=== PATIENT | male | born 1955 ===

== ENCOUNTER → 2025-02-21 14:39 | Outpatient (CLI) | payer MEDICARE, OTHER, SELFPAY ==
--- NOTE | 2025-02-21 14:42 | DI.MRI.S_ITS ---
PROCEDURE: MR SHOULDER RT WO CON INDICATIONS: R SHOULDER PAIN TECHNIQUE: Noncontrast oblique coronal T2 fast spin echo with fat saturation, oblique sagittal T1 spin echo and T2 fast spin echo with fat saturation, axial T1 spin echo and T2 fast spin echo with fat saturation through the shoulder. COMPARISON: [facility], CR, XR SHOULDER RT 2+ VIEWS, 02/18/2025, 9:36. FINDINGS: Image quality: Excellent. Rotator cuff: Full-thickness rupture involving mid to posterior fibers of distal supraspinatus at its insertion on humeral head is seen with up to 2.3 cm medial retraction of torn tendon fibers. Low to moderate grade articular surface partial-thickness tear involving anterior fibers of distal supraspinatus and distal infraspinatus tendons at their insertions on humeral head extending to musculotendinous junction. Low to moderate grade intrasubstance partial-thickness tear involving distal subscapularis. Sagittal images demonstrate mild supraspinatus muscle atrophy. Bones and bursae: Heterogeneously T2 hyperintense and T1 hypointense expansile structure is noted involving medullary space of proximal humeral shaft just below the level of surgical neck and measures up to 2.6 x 2.6 x 5.7 cm in largest AP, transverse and craniocaudal dimensions series 6, image 18 and series 8 image 13. Slight thinning of lateral cortex with questionable periosteal reaction and adjacent fluid signal is seen. No other suspicious bony lesions. Moderate acromioclavicular joint osteoarthritic changes are seen with joint space narrowing and downward osteophyte formation depressing on musculotendinous junction of supraspinatus. Type 2 acromion without an os acromiale. Moderate amount of joint fluid and subacromial subdeltoid bursal fluid, no loose bodies. Capsule and soft tissues: Degenerative changes are noted throughout labrum without definite focal labral tear. The long head of the biceps tendon thickened with intrasubstance T2 hyperintense signal near its proximal insertion. IMPRESSION: 1. 2.6 x 2.6 x 5.7 cm expansile heterogeneously T2 hyperintense lesion involving intra medullary space of proximal humeral shaft with subtle periosteal reaction along lateral cortex of proximal humeral shaft concerning for neoplastic process of proximal humeral shaft of indeterminate nature. Biopsy of the lesion can be done for more definitive diagnosis. 2. Moderate acromioclavicular joint osteoarthritis. No acute fracture or dislocation. Moderate joint effusion and subacromial subdeltoid bursal fluid, no loose bodies. 3. Full-thickness rupture involving mid to posterior fibers of distal supraspinatus at its insertion on humeral head with up to 2.3 cm medial retraction of torn tendon fibers. Low to moderate grade articular surface partial-thickness tear involving anterior fibers of distal supraspinatus and distal infraspinatus extending to musculotendinous junction. Low to moderate grade intrasubstance partial-thickness tear involving distal subscapularis. Mild supraspinatus muscle atrophy. 4. Degenerative changes throughout glenoid labrum without definite focal labral tear. 5. Tendinosis and low-grade intrasubstance partial-thickness tear involving proximal intra-articular portion of long head of biceps. Dictated by: Rex Dobson M.D. on 02/23/2025 at 10:42 Approved by: Rex Dobson M.D. on 02/23/2025 at 10:51
== END ==
PROVIDERS: PCP Family Medicine; Referring Provider Orthopaedic Surgery; Visit Provider Orthopaedic Surgery
DX: M75.121 Complete rotator cuff tear or rupture of right shoulder, not specified as traumatic (principal); S46.111A Strain of muscle, fascia and tendon of long head of biceps, right arm, initial encounter; M25.511 Pain in right shoulder; M89.9 Disorder of bone, unspecified; M19.011 Primary osteoarthritis, right shoulder
CPT/HCPCS: 73221